=== PATIENT | female | born 1985 | race Caucasian/White ===

== ENCOUNTER 2020-05-07 16:09 | Outpatient (CLI) | payer OTHER, SELFPAY ==
--- NOTE | 2020-05-07 16:14 | XR_ITS ---
WS: [id number] EXAM: LEFT KNEE: 3 VIEWS DATE OF EXAMINATION: 05/07/2020, 1635 hours COMPARISON: None. HISTORY: Patient is 35 years old with knee pain after falling down stairs on Thursday. FINDINGS: Osseous, joint and surrounding soft tissues are unremarkable. XR/XR knee LT 3V* [id number] IMPRESSION: Negative.
== END 2020-05-07 16:10 | disposition home or self-care (01) ==
LOC: RAD 16:13
PROVIDERS: PCP Family Medicine; Visit Provider Nurse Practitioner
DX: M25.562 Pain in left knee (principal); W19.XXXA Unspecified fall, initial encounter
CPT/HCPCS: 73562

== ENCOUNTER → 2020-09-25 16:50 | Outpatient (BNVA) | payer OTHER, SELFPAY | PROVIDERS: PCP Family Medicine; Visit Provider Nurse Practitioner Family | DX: Z20.828 Contact with and (suspected) exposure to other viral communicable diseases (principal); J06.9 Acute upper respiratory infection, unspecified | CPT/HCPCS: 87635 ==

== ENCOUNTER → 2021-04-02 09:40 | Outpatient (BNVA) | payer OTHER, SELFPAY | PROVIDERS: PCP Family Medicine; Visit Provider Nurse Practitioner Family | DX: Z20.822 Contact with and (suspected) exposure to COVID-19 (principal) | CPT/HCPCS: 87635 ==

== ENCOUNTER 2021-11-22 07:03 | Emergency (ER) | payer OTHER, SELFPAY ==
--- NOTE | 2021-11-22 07:07 | XR_ITS ---
WS: [id number] Right foot, 3 views, 11/22/2021 Clinical Data: fall, injury Comparison: None. Findings: No fractures or dislocations are seen. No bone destruction or erosion is noted. The joint spaces and soft tissues are normal. There is a plantar spur. XR/XR foot RT min 3V* [id number] Impression: Negative right foot.
[2021-11-22 07:15] VITALS: BP 146/88; PULSE 82; RESP 20; TEMP 36.8; O2SAT 99; BMI 28.5
--- NOTE | 2021-11-22 07:19 | W.ED.LOWEXIN ---
HPI - Extremity Injury (Lower) General: Chief Complaint: Extremity Injury, Lower Stated Complaint: Fell Right foot injury Time Seen by Provider: 11/22/21 07:07 Source: patient Mode of arrival: wheelchair Limitations: no limitations History of Present Illness: Patient is a 36-year-old female presents to ED today with a complaint of a right foot injury that she sustained just prior to arrival after she was on a flight of stairs and one of the stairs broke. She is not sure how the foot landed but complains of pain to the dorsal aspect. Patient states she is not able to bear weight. She has no other injuries or complaints at this time. complaint: foot injury Onset (ago): hour(s) Injury: Right: foot Place: home Relieving factors: immobilization Exacerbating factors: weight bearing, movement and palpation Other symptoms: none Review of Systems Musc: Reports: extremity pain (R foot pain); Denies: extremity swelling or joint swelling Neuro: Denies: numbness in extremities or sensory changes PFS ED PFSH: Social History Smoking and tobacco status: current every day smoker Alcohol intake: never Physical Exam Const: COMMON NORMALS: no acute distress, no limitations and alert GENERAL APPEARANCE: cooperative Extremity: COMMON NORMALS: capillary refill normal GENERAL: Yes normal exam except as noted RIGHT LOWER EXTREMITY: Yes foot & digits Right foot and digits: Yes inspection (no swelling or bony abnormality appreciated ), Yes palpation (TTP mid dorsal foot; no swelling noted) and Yes neurovascular exam (normal) Neuro: SENSORIUM/ORIENTATION: Yes alert Course Vital Signs: Vital signs: Vital Signs Temperature 98.2 F 11/22/21 07:21 Pulse Rate 82 11/22/21 07:21 Respiratory Rate 20 H 11/22/21 07:21 Blood Pressure 146/88 11/22/21 07:21 Pulse Oximetry 99 11/22/21 07:21 MDM - Extremity Injury (Lower) Medical Decision Making My interpretation of R foot XR negative. Will KARTHIK wrap/crutches and instructions for RICE therapy and weight bearing as tolerated. Will contact patient if any discrepancies with radiology over-read. Discharge Plan Discharge Patient Disposition: Home Clinical Impression: Right foot sprain Qualifiers: Encounter type: initial encounter Qualified Code(s): S93.601A - Unspecified sprain of right foot, initial encounter Condition: Stable Prescriptions: No Action amoxicillin-pot clavulanate [Augmentin] 875-125 mg tablet 1 tab PO Q12H 7 Days Qty: 14 0RF prednisone 10 mg tablet 30 mg PO DAILY 5 Days Qty: 15 0RF Discharge Orders: Discharge ED (Routine); Ordered 11/22/21 Ordered By: Anna Hogan Referrals: Lacy Rivas MD [Primary Care Provider] - Patient Instructions: Foot Sprain (ED) Stand Alone Forms: Work/School Release Coding Level of Care Code ED Pipe Bowls Paint Trimmer for Radha Hardin
[2021-11-22 07:21] VITALS: BP 146/88; PULSE 82; RESP 20; TEMP 36.8; O2SAT 99
[2021-11-22 07:37] VITALS: BP 107/83; PULSE 81; O2SAT 98
== END 2021-11-22 07:39 | disposition home or self-care (01) ==
PROVIDERS: Emergency Provider Physician Assistant; PCP Family Medicine
DX: S93.601A Unspecified sprain of right foot, initial encounter (principal); F17.210 Nicotine dependence, cigarettes, uncomplicated; W13.8XXA Fall from, out of or through other building or structure, initial encounter
CPT/HCPCS: 73630; 99283; E0114

== ENCOUNTER → 2022-03-28 16:57 | Outpatient (BNVA) | payer OTHER, SELFPAY | PROVIDERS: PCP Family Medicine; Visit Provider Obstetrics & Gynecology | DX: R21 Rash and other nonspecific skin eruption (principal) | CPT/HCPCS: 88304; 88305 ==

== ENCOUNTER 2022-04-07 22:36 | Emergency (ER) | payer OTHER, SELFPAY ==
[2022-04-07 22:51] VITALS: BP 141/90; PULSE 95; RESP 18; TEMP 37.1; O2SAT 98; BMI 27.0
--- NOTE | 2022-04-07 22:57 | ED_ITS ---
HPI - General Adult General: Chief complaint: General Medical Stated complaint: Wound Care Time Seen by Provider: 04/07/22 22:56 History of Present Illness: 37-year-old female comes in today for possible infection to surgical biopsy site. Patient on the eighth had a biopsy of her right upper chest wall. Patient reported on Thursday she noticed some purulent drainage from the site. Patient appears nontoxic. Patient appears in no acute distress. Patient does report tenderness at the surgical site. Review of Systems Const: Denies: fever(s) Skin/Breast: Reports: skin tenderness PFSH ED PFSH: Medical History (Updated 04/07/22 @ 23:03 by CHAZ Mello) No pertinent past medical history Surgical History (Updated 03/30/22 @ 15:19 by Jolene Acosta MD) No pertinent past surgical history Social History Smoking and tobacco status: current every day smoker Alcohol intake: never Female Reproductive History: Date of last menstrual period: 03/17/22 Physical Exam Const: COMMON NORMALS: alert HENMT: COMMON NORMALS: normocephalic HEAD & SCALP: normocephalic Neck/C-Spine: COMMON NORMALS: full ROM Chest: CHEST: Yes wounds (Right upper chest wall, induration, mild purulent drainage) Resp: COMMON NORMALS: normal respiratory effort Cardio: COMMON NORMALS: regular rate RATE: regular rate Extremity: COMMON NORMALS: normal to inspection Neuro: SENSORIUM/ORIENTATION: Yes alert Skin: WOUNDS: Yes wounds noted drainage, without odor, open and other (Surrounding induration); Negative for without any surrounding erythema Course Vital Signs: Vital signs: Vital Signs Temperature 98.7 F 04/07/22 22:51 Pulse Rate 95 04/07/22 22:51 Respiratory Rate 18 04/07/22 22:51 Blood Pressure 141/90 04/07/22 22:51 Pulse Oximetry 98 04/07/22 22:51 MDM - General Adult Medical Decision Making Patient comes in for concerns of an infection to her surgical wound. Patient had a biopsy done on the eighth of this month to her right upper chest wall. On evaluation today we note some purulent drainage from the wound site with some induration surrounding the biopsy.Significant redness is noted. Differential diagnosis includes but not limited to abscess, cellulitis, wound infection. We will go ahead and treat with doxycycline mupirocin ointment for wound infection. Reviewed exam with patient recommendations for treatment and follow-up. Patient reported understanding and agreed to plan. Discharge Plan Discharge Patient Disposition: Home Clinical Impression: Wound, surgical, infected Condition: Stable Prescriptions: New doxycycline monohydrate 100 mg capsule 100 mg PO BID 7 Days Qty: 14 0RF mupirocin 2 % ointment 1 applic topical BID Qty: 22 0RF Discharge Orders: Discharge ED (Routine); Ordered 04/07/22 Ordered By: Hemant Styles Referrals: Lacy Rivas MD [Primary Care Provider] - Discharge Diet: Usual diet Discharge Activity: Increase activity as tolerated Patient Instructions: Wound Infection (ED) Activity Restrictions/Additional Instructions: Take antibiotic doxycycline, 1 tablet 2 times a day for 7 days. Drink plenty of water with medication. The antibiotic use may make you more sensitive to sunlight causing you to burn easier. Use mupirocin ointment twice a day to the wound until healed. Follow-up with primary care or surgeon for further dorota tment and evaluation. Return to ER for high fever greater than 100.4, inability to hold fluids down, or new concerns. Coding Level of Care Code ED Branch Service Leader for Radha Hardin
[2022-04-07] MEDS: mupirocin oint 22 gm 1 APPLIC TOPICAL (23:41)
[2022-04-07] MEDS: doxycycline 100 mg Tablet PO (23:41)
== END 2022-04-07 23:58 | disposition home or self-care (01) ==
PROVIDERS: Emergency Provider Nurse Practitioner Family; PCP Family Medicine
DX: T81.41XA Infection following a procedure, superficial incisional surgical site, initial encounter (principal); F17.210 Nicotine dependence, cigarettes, uncomplicated
CPT/HCPCS: 99283

== ENCOUNTER 2022-05-21 08:37 | Outpatient (CLI) | payer OTHER, SELFPAY ==
--- NOTE | 2022-05-21 08:57 | MM_ITS ---
WS: [id number] DIAGNOSTIC BILATERAL DIGITAL BREAST TOMOSYNTHESIS MAMMOGRAPHY WITH CAD HISTORY: RIGHT breast rash. No palpable abnormalities. COMPARISON: None available. TECHNIQUE: Bilateral craniocaudad, mediolateral oblique, and mediolateral views are submitted with to moswilly and SM. Computer aided detection utilized. Breast composition: There are scattered areas of fibroglandular density. No suspicious mass or calcif ication. No architectural distortion. No skin thickening. Nipples are in profile. MM/[place] [id number] IMPRESSION: BI-RADS: 1-Negative FOLLOW UP: 1 Year Follow-up
== END 2022-05-21 08:38 | disposition home or self-care (01) ==
LOC: RAD 08:39
PROVIDERS: PCP Family Medicine; Visit Provider Obstetrics & Gynecology
DX: R21 Rash and other nonspecific skin eruption (principal)
CPT/HCPCS: 77062

== ENCOUNTER → 2023-04-16 09:23 | Outpatient (BNVA) | payer OTHER, SELFPAY | PROVIDERS: PCP Family Medicine; Visit Provider Podiatrist Foot & Ankle Surgery | DX: M79.671 Pain in right foot (principal) | CPT/HCPCS: 73630 ==

== ENCOUNTER → 2023-06-26 16:36 | Outpatient (BNVA) | payer OTHER, SELFPAY | PROVIDERS: PCP Family Medicine; Visit Provider Emergency Medicine | DX: M25.511 Pain in right shoulder | CPT/HCPCS: 73030 ==

== ENCOUNTER → 2023-07-08 08:30 | Outpatient (BNVA) | payer OTHER, SELFPAY | PROVIDERS: PCP Family Medicine; Visit Provider Family Medicine | DX: R42 Dizziness and giddiness (principal); R10.32 Left lower quadrant pain; F17.200 Nicotine dependence, unspecified, uncomplicated; Z71.6 Tobacco abuse counseling | CPT/HCPCS: 80053; 80061; 82306; 82607; 82728; 83550; 84439; 84443; 85025 ==

== ENCOUNTER 2023-08-31 14:58 | Emergency (ER) | payer OTHER, SELFPAY ==
[2023-08-31 15:02] VITALS: BP 117/81; PULSE 92; RESP 18; TEMP 36.6; O2SAT 96
--- NOTE | 2023-08-31 15:06 | XR_ITS ---
WS: [id number] Exam: XR foot RT min 3V* [id number] Date/Time of Exam: 08/31/2023 3:08 PM Reason For Exam: injury Comparison 04/16/2023. There is an acute fracture of the distal end of the fifth proximal phalanx with lateral angulation of the distal fragment. No other acute fractures are seen. No dislocation. No soft tissue foreign tayla s. Plantar heel spur. IMPRESSION: 1. Angulated fracture of the distal end of the proximal fifth phalanx.
--- NOTE | 2023-08-31 15:10 | ED_ITS ---
HPI - Extremity Problem General: Chief complaint: Extremity Injury, Lower Stated complaint: hurt right foot Time Seen by Provider: 08/31/23 15:06 Source: patient Mode of arrival: ambulatory Limitations: no limitations History of Present Illness: 38-year-old female states just prior to arrival she had hit her right pinky toe on her couch states she believes she may have fractured she has pain in that toe she rates a 6 out of 10 denies any other injuries states is worse with palpation improved with rest. Associated symptoms: Deny chest pain, fever(s) or rash Review of Systems Const: Denies: fever(s) or chills ENMT: Denies: throat pain or dental pain Card: Denies: chest pain Resp: Denies: dyspnea GI: Denies: abdominal pain, nausea, vomiting or diarrhea Musc: Reports: extremity pain; Denies: neck pain or back pain Skin/Breast: Denies: rash Neuro: Denies: headache(s) PFS ED PFSH: Medical History No pertinent past medical history Surgical History No pertinent past surgical history Family History (Updated 07/08/23 @ 07:56 by Ibis Broussard LPN) Grandfather CAD (coronary artery disease) Mother CAD (coronary artery disease) Social History Smoking and tobacco/nicotine status: current every day tobacco/nicotine user Alcohol intake: never Substance/Drug Use: never Physical Exam Const: COMMON NORMALS: no acute distress, patient oriented x3 and healthy appearing HENMT: COMMON NORMALS: normocephalic and atraumatic HEAD & SCALP: normocephalic and atraumatic Neck/C-Spine: COMMON NORMALS: full ROM and supple Chest: COMMONS NORMALS: normal inspection of the chest Resp: COMMON NORMALS: normal respiratory effort Extremity: COMMON NORMALS: normal to inspection and full ROM NARRATIVE EXTREMITY EXAM: Tenderness over right pinky toe Neuro: COMMON NORMALS: patient oriented x3, moves all extremities and no focal motor deficits Psych: COMMON NORMALS: mental status grossly normal, Normal thought process present and cooperative THOUGHT PROCESS: Normal thought process present Skin: COMMON NORMALS: no rashes or lesions noted and no wounds GENERAL SKIN EXAM: no rashes or lesions noted Course Vital Signs: Vital signs: Vital Signs Temperature 97.8 F 08/31/23 15:02 Pulse Rate 92 08/31/23 15:02 Respiratory Rate 18 08/31/23 15:02 Blood Pressure 117/81 08/31/23 15:02 Pulse Oximetry 96 08/31/23 15:02 Oxygen Delivery Me thod Room Air 08/31/23 15:02 MDM - Extremity (Nontraumatic) Medical Decision Making Patient presents with a toe fracture patient stable for discharge we will prescribe pain meds she is to follow-up with podiatry return if worsening. Medical Records I reviewed the patient's medical records. XR interpretation done by ED provider, pending radiology final review ED provider radiology interpretation(s): Fracture to right pinky toe Discharge Plan Discharge Patient Disposition: Home Clinical Impression: Fracture of right toe Qualifiers: Encounter type: initial encounter Toe: lesser toe Fracture type: closed Phalanx: middle Fracture alignment: nondisplaced Qualified Code(s): S92.524A - Nondisplaced fracture of middle phalanx of right lesser toe(s), initial encounter for closed fracture Condition: Stable Prescriptions: New hydrocodone-acetaminophen 5-325 mg tablet 1 tab PO Q6H PRN (Reason: pain) Qty: 14 0RF No Action ibuprofen 600 mg tablet 600 mg PO Q8H PRN (Reason: pain) Qty: 30 0RF cholecalciferol (vitamin D3) 1,250 mcg (50,000 unit) capsule 50,000 unit PO .q weekly 84 Days Qty: 12 0RF Discharge Orders: Discharge ED (Routine); Ordered 08/31/23 Ordered By: Tunde Mayer Referrals: Rene Chu DPM [Physician] - 1-3 days Bernardo Ashby MD [Primary Care Provider] - Discharge Diet: Advance as tolerated Discharge Activity: Resume usual activity Patient Instructions: Toe Fracture (ED), Opioid Safety Coding Level of Care Code ED Leather Heel Breaster for Radha Hardin
[2023-08-31] MEDS: HYDROcodone-acetaminophen 5-325 mg Tablet 1 TAB PO (15:16)
--- NOTE | 2023-08-31 18:04 | DCPLANNER ---
Referral was sent to podiatry on 08/31/23 at [id number]. Clinic to contact patient.
== END 2023-08-31 15:42 | disposition home or self-care (01) ==
PROVIDERS: Emergency Provider Emergency Medicine; PCP Family Medicine
DX: S92.524A Nondisplaced fracture of middle phalanx of right lesser toe(s), initial encounter for closed fracture (principal); Z72.0 Tobacco use; W22.03XA Walked into furniture, initial encounter
CPT/HCPCS: 73630; 99283

== ENCOUNTER → 2023-09-03 14:52 | Outpatient (BNVA) | payer OTHER, SELFPAY | PROVIDERS: PCP Family Medicine; Visit Provider Podiatrist Foot & Ankle Surgery | DX: S92.911A Unspecified fracture of right toe(s), initial encounter for closed fracture (principal); W22.8XXA Striking against or struck by other objects, initial encounter | CPT/HCPCS: 73630 ==

== ENCOUNTER → 2023-09-24 09:44 | Outpatient (BNVA) | payer OTHER, SELFPAY | PROVIDERS: PCP Family Medicine; Visit Provider Podiatrist Foot & Ankle Surgery | DX: S92.911D Unspecified fracture of right toe(s), subsequent encounter for fracture with routine healing (principal); X58.XXXD Exposure to other specified factors, subsequent encounter | CPT/HCPCS: 73630 ==

== ENCOUNTER → 2023-09-29 10:22 | Outpatient (BNVA) | payer OTHER, SELFPAY | PROVIDERS: PCP Family Medicine; Visit Provider Family Medicine | DX: E55.9 Vitamin D deficiency, unspecified (principal); H81.10 Benign paroxysmal vertigo, unspecified ear; R10.32 Left lower quadrant pain; F17.200 Nicotine dependence, unspecified, uncomplicated | CPT/HCPCS: 82306; 83540 ==

== ENCOUNTER 2023-10-26 10:26 | Outpatient (RCR) | payer OTHER, SELFPAY | END 2023-11-19 23:59 | disposition home or self-care (01) | LOC: SPT 10:26 | PROVIDERS: Visit Provider Family Medicine | DX: H81.10 Benign paroxysmal vertigo, unspecified ear (principal) | CPT/HCPCS: 95992; 97161 ==

== ENCOUNTER 2023-12-03 11:18 | Emergency (ER) | payer OTHER, SELFPAY ==
[2023-12-03 11:23] VITALS: BP 133/86; PULSE 66; RESP 16; TEMP 36.6; O2SAT 97; BMI 27.6
--- NOTE | 2023-12-03 11:51 | ED_ITS ---
HPI - Animal Bite General: Chief Complaint: Animal Bite Stated Complaint: sent over by urgent care, rabies shot Time Seen by Provider: 12/03/23 11:20 Source: patient Mode of arrival: ambulatory History of Present Illness: 38-year-old female presents emergency ro om with a cat bite to the left forearm that occurred yesterday she has 2 puncture méndez on the forearm she applied a cyanoacrylate skin glue to them she was seen in the urgent care today initially she had stated she wanted to get rabies vaccination. The cat is a house cat but that has not been vaccinated for rabies. Is been behaving well it was started yesterday with which resulted in her getting bitten. Is still under control and has not shown any signs of illness. MD complaint: animal bite Onset (ago): day(s) (1) Animal: cat Description of animal: household pet Mechanism: bite Location - Extremities: Left: forearm Associated symptoms: Deny bleeding, chills, cough, diaphoresis, erythema, fever(s), numbness, rash, short of breath, weakness or wound drainage Treatments prior to arrival: wound dressing(s) Review of Systems Const: Denies: fever(s), chills or diaphoresis Skin/Breast: Denies: rash PFSH ED PFSH: Medical History No pertinent past medical history Surgical History No pertinent past surgical history Family History Grandfather CAD (coronary artery disease) Mother CAD (coronary artery disease) Social History Smoking and tobacco/nicotine status: current every day tobacco/nicotine user Alcohol intake: never Substance/Drug Use: never Physical Exam Const: GENERAL APPEARANCE: cooperative and comfortable ORIENTATION/CONSCIOUSNESS: Yes awake, Yes oriented to person, Yes oriented to place and Yes oriented to time HENMT: COMMON NORMALS: normocephalic, atraumatic and hearing grossly normal bilaterally HEAD & SCALP: normocephalic and atraumatic Resp: COMMON NORMALS: normal respiratory effort, No retractions, No use of accessory muscles and clear to auscultation bilaterally AUSCULTATION: clear to auscultation bilaterally Cardio: COMMON NORMALS: regular rate, regular rhythm and No murmurs present (Cardio) RATE: regular rate RHYTHM: regular rhythm Extremity: COMMON NORMALS: normal to inspection, capillary refill normal, no clubbing, cyanosis or edema, no calf tenderness and no pedal edema OTHER: 2 puncture wounds in the left forearm co nsistent with cat bite. There is cyanoacrylate glue on which was cleaned off by nursing staff no signs of infection mild localized swelling no redness or induration Neuro: SENSORIUM/ORIENTATION: Yes oriented to person, Yes oriented to place and Yes oriented to time Skin: COMMON NORMALS: no rashes or lesions noted GENERAL SKIN EXAM: no rashes or lesions noted and no erythema Course Vital Signs: Vital signs: Vital Signs Temperature 97.9 F 12/03/23 11:23 Pulse Rate 66 12/03/23 11:23 Respiratory Rate 16 12/03/23 11:23 Blood Pressure 133/86 12/03/23 11:23 Pulse Oximetry 97 12/03/23 11:23 Oxygen Delivery Me thod Room Air 12/03/23 11:23 MDM - Animal Bite Medical Decision Making Discussed with patient and offered vaccination for rabies versus observing the cat ultimately she decided to observe the cat is still in her position as to any changes and because behavior needs to be tested for rabies and she would need to initiate immunizations. Advised patient if she changes her mind any point she can return and we will initiate the rabies sequence. Discussed with the patient should not put occlusive bandage over the bites as it can increase the development of abscess. Was prescribed Augmentin at the Differential Diagnosis Likely cat bite Medical Records I reviewed the patient's medical records. Lab Data I reviewed the patient's lab results. No radiology studies performed this visit Discharge Plan Discharge Patient Disposition: Home Clinical Impression: Cat bite of forearm Condition: Stable Prescriptions: No Action ibuprofen 600 mg tablet 600 mg PO Q8H PRN (Reason: pain) Qty: 30 0RF amoxicillin-pot clavulanate 875-125 mg tablet 1 tab PO BID 10 Days Qty: 20 0RF cholecalciferol (vitamin D3) 1,250 mcg (50,000 unit) capsule See Rx Instructions .ROUTE .COMPLEX Qty: 12 0RF Dose Instruction: Take 1 capsule by mouth once a week Rx Instructions: Take 1 capsule by mouth once a week Discharge Orders: Discharge ED (Routine); Ordered 12/03/23 Ordered By: Mahesh Sim Referrals: Bernardo Ashby MD [Primary Care Provider] - Discharge Diet: Usual diet Discharge Activity: Resume usual activity Patient Instructions: Rabies (ED), Opioid Safety, Pain Management Activity Restrictions/Additional Instructions: Thank you for choosing [facility] for your healthcare needs today. Please realize this is an emergency room and that we are providing you with a medical screening exam and this may not be complete and all inclusive of all the testing and or work up that you may need to determine your ailment or severity of your illness. It is very important that you follow up as instructed or that you return to the Emergency Department should you have concerns or if your condition changes or worsens in any way. You are seen today after a cat bite. You previously prescribed Augmentin you should take this for the full course. Recommend that you leave the wound open to heal by secondary intent avoid applying products wound closure products or they can worsening develop infection if it occurs. We had offered rabies vaccination in the emergency room you had opted instead to observe the animal since he is still in here for the control. Animal should be observed for any signs of illness for the next 10 days if there are any signs of illness animal should be brought to the commercial lending relationship manager to be tested and you should begin rabies vaccination if you change your mind at any point in the future before the 10 days is up you can return to initiate rabies vaccination. Coding Level of Care Code ED Product Builder for Radha Hardin
[2023-12-03] MEDS: tetanus-dipt-pertussis 0.5 mL SDV IM (12:18)
== END 2023-12-03 12:29 | disposition home or self-care (01) ==
PROVIDERS: Emergency Provider Family Medicine; PCP Family Medicine
DX: S51.852A Open bite of left forearm, initial encounter (principal); W55.01XA Bitten by cat, initial encounter; Z72.0 Tobacco use; Z23 Encounter for immunization
CPT/HCPCS: 90471; 90715; 99283

== ENCOUNTER → 2024-07-18 10:15 | Outpatient (BNVA) | payer OTHER, SELFPAY | PROVIDERS: PCP Family Medicine; Visit Provider Registered Nurse Neonatal Intensive Care | DX: S99.921A Unspecified injury of right foot, initial encounter (principal); M77.31 Calcaneal spur, right foot | CPT/HCPCS: 73630 ==

== ENCOUNTER → 2024-07-26 09:06 | Outpatient (BNVA) | payer OTHER, SELFPAY | PROVIDERS: PCP Family Medicine; Visit Provider Podiatrist Foot & Ankle Surgery | DX: M79.671 Pain in right foot (principal); S92.001A Unspecified fracture of right calcaneus, initial encounter for closed fracture; W17.89XA Other fall from one level to another, initial encounter | CPT/HCPCS: 73630 ==

== ENCOUNTER → 2024-08-09 07:50 | Outpatient (BNVA) | payer OTHER, SELFPAY | PROVIDERS: PCP Family Medicine; Visit Provider Podiatrist Foot & Ankle Surgery | DX: M79.671 Pain in right foot (principal); S92.001A Unspecified fracture of right calcaneus, initial encounter for closed fracture; X58.XXXA Exposure to other specified factors, initial encounter | CPT/HCPCS: 73630 ==

== ENCOUNTER → 2024-11-02 15:20 | Outpatient (BNVA) | payer OTHER, SELFPAY | PROVIDERS: PCP Family Medicine; Visit Provider Podiatrist Foot & Ankle Surgery | DX: M79.671 Pain in right foot (principal); M72.2 Plantar fascial fibromatosis | CPT/HCPCS: 73630 ==

== ENCOUNTER 2025-06-17 19:02 | Emergency (ER) | payer OTHER, SELFPAY ==
[2025-06-17 19:07] VITALS: BP 154/101; PULSE 78; RESP 14; TEMP 36.3; O2SAT 99; BMI 29.7
[2025-06-17 19:57] VITALS: BP 133/94; PULSE 76; RESP 16; O2SAT 96
--- NOTE | 2025-06-17 20:05 | USR_ITS ---
PROCEDURE INFORMATION: Exam: US Abdomen, Limited; Right Upper Quadrant Exam date and time: 06/17/2025 8:52 PM Age: 40 years old Clinical indication: Abdominal pain; Localized; Right upper quadrant (ruq); Additional info: Ruq pain TECHNIQUE: Imaging protocol: Real time ultrasound of the abdomen with image documentation. Limited exam focused on the right upper quadrant. COMPARISON: No relevant prior studies available. FINDINGS: Liver: Liver demonstrate normal echogenicity Gallbladder: Gallbladder is fluid filled no gallstones identified. Gallbladder wall thickness measured at 3 mm. Common bile duct measured at 5 mm Biliary ducts: See Gallbladder finding. Pancreas: Visualized pancreas demonstrate no abnormalities head and tail obscured by bowel gas. Right kidney: The right kidney measures 9.9 x 4.4 x 4.2 cm with cortical thickness of 1.4 cm. There is normal echogenicity right kidney without stones or hydronephrosis. Portal venous: There is normal hepatopedal flow in the main portal vein. US/US gall bladder [id number] IMPRESSION: No findings present to suggest cholelithiasis or biliary dilatation.
[2025-06-17 20:14] LABS: Hematocrit 39.0 % (36-47); Hemoglobin 13.00 g/dL (11.27-16.99); Mean Corpuscular HGB Conc 33.3 g/dL (30-55); Mean Corpuscular Hemoglobin 29.7 pg (27-33); Mean Corpuscular Volume 89.0 fl (85-98); Nucleated Red Blood Cells % 0 %; Platelet Count 257 10^3/cmm (157-399); Red Blood Count 4.38 10^6/uL (3.85-5.65); White Blood Count 7.88 10^3/uL (3.29-11.43)
[2025-06-17] MEDS: ondansetron 2 mg/ML SDV 2 mL 4 MG IVP (20:19)
[2025-06-17 20:39] LABS: HCG, Serum Qual Negative (Negative)
[2025-06-17 20:41] LABS: Alanine Aminotransferase 16 U/L (0-33); Albumin Level 4.4 g/dL (3.5-5.2); Alkaline Phosphatase 55 U/L (35-105); Anion Gap 15.1 (5-19); Aspartate Amino Transferase 17 U/L (0-32); Blood Urea Nitrogen 10 mg/dL (6-20); Calcium 9.6 mg/dL (8.5-10.5); Carbon Dioxide 25 mmol/L (22-29); Chloride 105 mmol/L (98-107); Creatinine Clr Calc Pharmacy 122.8821; Globulin 2.6 g/dL (1.3-4.6); Glucose 93 mg/dL (65-115); Lipase 34 U/L (13-60); Osmolality Calculated 291 mOsm/kg (285-295); Potassium 4.1 mmol/L (3.5-5.1); Sodium 141 mmol/L (136-145); Total Protein 7.0 g/dL (6.6-8.7)
[2025-06-17 20:42] LABS: Glucose Urine UA Negative (Normal); Nitrate Urine Negative (Negative); Specific Gravity, Urine 1.023 (1.005-1.030)
[2025-06-17 20:44] VITALS: BP 118/79; PULSE 73; RESP 16; O2SAT 98
--- NOTE | 2025-06-17 20:45 | W.ED.ABDPA2 ---
HPI - Abdominal Pain General: Chief Complaint: Abdominal Pain Stated Complaint: Stomach pain RUQ Nausea Time Seen by Provider: 06/17/25 19:46 History of Present Illness: Patient is a 40-year-old female presenting with abdominal pain that started on Thursday. She reports the pain has worsened since onset. The pain is localized to the right upper quadrant of the abdomen. Patient denies vomiting but reports feeling nauseated. She denies fever and diarrhea. Patient reports some discomfort with urination but denies hematuria. Patient denies possibility of . The pain is described as being worse with movement. Related Data Previous Rx's ?Medication ?Instructions ?Recorded ketorolac 10 mg tablet 10 mg PO TID PRN pain #10 tabs 06/17/25 ondansetron 4 mg disintegrating 4 mg PO Q6H PRN nausea and 06/17/25 tablet vomiting #14 tabs Allergies Allergy/AdvReac Type Severity Reaction Status Date / Time No Known Allergies Allergy Verified 06/17/25 19:10 [facility] ED PFSH: Medical History Right shoulder pain No pertinent past medical history Surgical History No pertinent past surgical history Family History Grandfather CAD (coronary artery disease) Mother CAD (coronary artery disease) Social History Smoking and tobacco/nicotine status: unknown if used tobacco/nicotine Alcohol intake: never Substance/Drug Use: never Physical Exam Const: COMMON NORMALS: no acute distress GENERAL APPEARANCE: cooperative; not ill appearing and not frail appearing HENMT: COMMON NORMALS: normocephalic, atraumatic and Normal external nose present HEAD & SCALP: normocephalic and atraumatic FACE & SINUS: normal facial exam and face symmetric NOSE: Normal external nose present Eye: COMMON NORMALS: Equal, round and reactive pupils present and EOMs intact bilaterally PUPIL: Yes Equal, round and reactive pupils present Neck/C-Spine: GENERAL: Yes trachea midline Chest: CHEST: Yes Symmetrical chest wall rise Resp: COMMON NORMALS: normal respiratory effort, No retractions, No use of accessory muscles and clear to auscultation bilaterally AUSCULTATION: clear to auscultation bilaterally Cardio: COMMON NORMALS: regular rate and regular rhythm RATE: regular rate RHYTHM: regular rhythm GI: COMMON NORMALS: Normal to inspection, nondistended, normoactive bowel sounds present PALPATION: Yes Tenderness to palpation present (GI) Details: RUQ Extremity: COMMON NORMALS: no pedal edema Neuro: CIARA COMA SCALE: document GCS findings Ciara coma scale eye opening: Spontaneous [place] coma scale verbal response: Orientated Ciara coma scale motor response: Obey commands [place] coma scale total score: 15 SENSORY EXAM: Yes extremities (intact) Psych: COMMON NORMALS: speech normal SPEECH: Yes normal speech Skin: COMMON NORMALS: no rashes or lesions noted GENERAL SKIN EXAM: no rashes or lesions noted Course Vital Signs: Vital signs: Vital Signs Temperature 97.4 F L 06/17/25 19:07 Pulse Rate 72 06/17/25 21:25 Respiratory Rate 16 06/17/25 21:25 Blood Pressure 126/97 06/17/25 21:25 Pulse Oximetry 95 06/17/25 21:25 Oxygen Delivery Me thod Room Air 06/17/25 21:25 MDM - Abdominal Pain Medical Decision Making 40-year-old female with right upper quadrant pain. Pain is improved after Toradol and Zofran. CBC BMP liver enzymes and lipase are all normal. CRP is 3. Urinalysis is negative. Right upper quad ultrasound reveals no acute findings. She is stable for discharge. Outpatient follow-up. Lab Data 06/17/25 19:56 06/17/25 19:56 Labs/Radiology: Radiology Impressions Gallbladder Ultrasound 06/17/25 20:05 IMPRESSION: No findings present to suggest cholelithiasis or biliary dilatation. Laboratory Results WBC 7.88 10^3/uL (3.29-11.43) 06/17/25 19:56 RBC 4.38 10^6/uL (3.85-5.65) 06/17/25 19:56 Hgb 13.00 g/dL (11.27-16.99) 06/17/25 19:56 Hct 39.0 % (36-47) 06/17/25 19:56 MCV 89.0 fl (85-98) 06/17/25 19:56 MCH 29.7 pg (27-33) 06/17/25 19:56 MCHC 33.3 g/dL (30-55) 06/17/25 19:56 RDW 11.9 % (12.1-15.1) L 06/17/25 19:56 Plt Count 257 10^3/cmm (157-399) 06/17/25 19:56 MPV 10.7 fL (7.4-10.4) H 06/17/25 19:56 Neut % (Auto) 53.3 % 06/17/25 19:56 Lymph % (Auto) 36.2 % 06/17/25 19:56 [place] % (Auto) 7.0 % 06/17/25 19:56 Eos % (Auto) 2.5 % 06/17/25 19:56 Baso % (Auto) 0.9 % 06/17/25 19:56 Neut # (Auto) 4.20 10^3/uL (1.8-7.7) 06/17/25 19:56 Lymph # (Auto) 2.9 10^3/uL (0.8-4.8) 06/17/25 19:56 [place] # (Auto) 0.6 10^3/uL (0.2-0.9) 06/17/25 19:56 Eos # (Auto) 0.2 10^3/uL (0.0-0.8) 06/17/25 19:56 Baso # (Auto) 0.1 10^3/uL (0.0-0.1) 06/17/25 19:56 Nucleated RBC % (auto) 0 % 06/17/25 19:56 Nucleated RBCs # 0.0 /100WBC 06/17/25 19:56 Sodium 141 mmol/L (136-145) 06/17/25 19:56 Potassium 4.1 mmol/L (3.5-5.1) 06/17/25 19:56 Chloride 105 mmol/L (98-107) 06/17/25 19:56 Carbon Dioxide 25 mmol/L (22-29) 06/17/25 19:56 Anion Gap 15.1 (5-19) 06/17/25 19:56 BUN 10 mg/dL (6-20) 06/17/25 19:56 Creatinine 0.7 mg/dL (0.5-0.9) 06/17/25 19:56 GFR Calculation 93.6 mL/min (90-130) 06/17/25 19:56 Glucose 93 mg/dL (65-115) 06/17/25 19:56 Calculated Osmolality 291 mOsm/kg (285-295) 06/17/25 19:56 Calcium 9.6 mg/dL (8.5-10.5) 06/17/25 19:56 Total Bilirubin 0.3 mg/dL (0.15-1.2) 06/17/25 19:56 AST 17 U/L (0-32) 06/17/25 19:56 ALT 16 U/L (0-33) 06/17/25 19:56 Alkaline Phosphatase 55 U/L (35-105) 06/17/25 19:56 C-Reactive Protein 3.0 mg/L (0.0-4.9) 06/17/25 19:56 Total Protein 7.0 g/dL (6.6-8.7) 06/17/25 19:56 Albumin 4.4 g/dL (3.5-5.2) 06/17/25 19:56 Globulin 2.6 g/dL (1.3-4.6) 06/17/25 19:56 Lipase 34 U/L (13-60) 06/17/25 19:56 HCG, Qual Negative (Negative) 06/17/25 19:56 Urine Color Yellow (Yellow) 06/17/25 20:10 Urine Appearance Turbid (CLEAR) A 06/17/25 20:10 Urine pH 6.5 (5-7) 06/17/25 20:10 Ur Specific [place] 1.023 (1.005-1.030) 06/17/25 20:10 Urine Protein Negative (Negative) 06/17/25 20:10 Urine Glucose (UA) Negative (Normal) 06/17/25 20:10 Urine Ketones Negative (Negative) 06/17/25 20:10 Urine Blood Negative (Negative) 06/17/25 20:10 Urine Nitrate Negative (Negative) 06/17/25 20:10 Urine Bilirubin Negative (Negative) 06/17/25 20:10 Urine Urobilinogen 1.0 mg/dL (Negative) 06/17/25 20:10 Ur Leukocyte Esterase Negative (Negative) 06/17/25 20:10 Urine RBC 0-2 /hpf (0-2) 06/17/25 20:10 Urine WBC 0-5 /hpf (0-5) 06/17/25 20:10 Ur Squamous Epith Cells 6-10 /hpf (0-5) 06/17/25 20:10 Amorphous Sediment Not Reportable 06/17/25 20:10 Urine Bacteria 1+ /hpf (NONE) H 06/17/25 20:10 Hyaline Casts 0-4 /lpf H 06/17/25 20:10 All radiology interpretation(s) finalized by discharge Discharge Plan Discharge Patient Disposition: Home Clinical Impression: Abdominal pain Qualifiers: Abdominal location: right upper quadrant Qualified Code(s): R10.11 - Right upper quadrant pain Condition: Stable Prescriptions: New ketorolac 10 mg tablet 10 mg PO TID PRN (Reason: pain) Qty: 10 0RF ondansetron 4 mg tablet,disintegrating 4 mg PO Q6H PRN (Reason: nausea and vomiting) Qty: 14 0RF Discharge Orders: Discharge ED (Routine); Ordered 06/17/25 Ordered By: Omar Silva Referrals: Bernardo Ashby MD [Primary Care Provider, Family Practice] - 1-3 days Patient Instructions: Abdominal Pain (ED), Opioid Safety, Pain Management, Patient Portal & Good Instructions Activity Restrictions/Additional Instructions: Return for fever, worsening pain despite treatment, vomiting liquids, any other concerning symptoms. You may take medication as needed for pain or nausea. Stay hydrated. Call your doctor Thursday morning for follow-up appointment this week. Print Language: Armenian Coding Level of Care Code ED Driver Messenger for Radha Hardin
[2025-06-17 20:47] LABS: Add Urine Microscopic? YES
[2025-06-17 21:25] VITALS: BP 126/97; PULSE 72; RESP 16; O2SAT 95
== END 2025-06-17 21:58 | disposition home or self-care (01) ==
PROVIDERS: Emergency Provider Emergency Medicine; PCP Family Medicine
DX: R10.11 Right upper quadrant pain (principal)
CPT/HCPCS: 76705; 80053; 81001; 83690; 84703; 85025; 86140; 96374; 96375; 99285; J1885; J2405

== ENCOUNTER 2025-06-27 08:57 | Emergency (ER) | payer OTHER, SELFPAY ==
[2025-06-27 09:13] VITALS: BP 134/90; PULSE 103; TEMP 36.9; O2SAT 98
--- NOTE | 2025-06-27 09:23 | ED_ITS ---
HPI - GI Bleed 2 General: Chief complaint: GI Bleed Stated complaint: blood in stool, Dr sent Time Seen by Provider: 06/27/25 09:18 Source: patient Mode of arrival: ambulatory Limitations: no limitations History of Present Illness: Patient is a 40-year-old female presents to ED today after an episode of bright red blood per rectum this morning after defecation. Patient states she had not had a bowel movement in approximately 3 days. She does report slightly straining during this bowel movement. She quantifies as a few teaspoons of bright red blood that was noticed in the toilet bowl and on her stool. She states she has never had similar symptoms before. No history of hemorrhoids. She is complaining of some minor right sided abdominal pain that is an ongoing issue. She has seen her primary care provider for this and was also seen in the ED. She was told this could be related to her gallbladder or gastritis. She states she is on a strict bland gallbladder diet and is also taking pantoprazole. She has an appointment to follow-up with primary care following this next month. She states her abdominal pain is at baseline and does not seem to be worsening. No fevers or vomiting. MD complaint: blood streaked stool Onset (ago): hour(s) Severity: mild Relieving factors: none Exacerbating factors: bowel movement Associated symptoms: Reports abdominal pain (ongoing issue-told could be gallbladder vs gastritis); Denies chills, fever(s), headache(s), malaise, nausea, rash or vomiting Treatments Prior to Arrival: none Related Data Previous Rx's ?Medication ?Instructions ?Recorded ondansetron 4 mg disintegrating 4 mg PO Q6H PRN nausea and 06/19/25 tablet vomiting #30 tabs pantoprazole 40 mg tablet,delayed 40 mg PO DAILY #30 t abs 06/19/25 release Allergies Allergy/AdvReac Type Severity Reaction Status Date / Time egg Allergy Unknown Verified 06/27/25 09:17 Review of Systems 2 Const: Denies: fever(s), chills, body aches, fatigue or malaise Card: Denies: chest pain Resp: Denies: dyspnea GI: Reports: abdominal pain (ongoing issue-told could be gallbladder vs gastritis) and hematochezia; Denies: nausea, vomiting, hematemesis, diarrhea, GI cramping, belching or melena : Denies: flank pain, dysuria or hematuria Musc: Denies: neck pain, back pain, extremity pain or joint swelling Skin/Breast: Denies: rash Neuro: Denies: headache(s), numbness in extremities, weakness in extremities, sensory changes or dizziness PFSH ED 2 PFSH: Medical History Obesity (BMI 30.0-34.9) Right shoulder pain No pertinent past medical history Surgical History No pertinent past surgical history Family History Grandfather CAD (coronary artery disease) Mother CAD (coronary artery disease) Social History Smoking and tobacco/nicotine status: current every day tobacco/nicotine user Alcohol intake: never Substance/Drug Use: never Physical Exam 2 Const: COMMON NORMALS: no acute distress, patient oriented x3, no limitations, healthy appearing, alert and well nourished GENERAL APPEARANCE: cooperative Eye: COMMON NORMALS: no scleral icterus Resp: COMMON NORMALS: normal respiratory effort and clear to auscultation bilaterally AUSCULTATION: clear to auscultation bilaterally Cardio: COMMON NORMALS: regular rate and regular rhythm RATE: regular rate RHYTHM: regular rhythm GI: COMMON NORMALS: Normal to inspection, nondistended, normoactive bowel sounds present, Soft to palpation, No hepatosplenomegaly present and no masses INSPECTION: Yes normal to inspection AUSCULTATION: Yes normoactive bowel sounds PALPATION: Yes Soft to palpation, Yes Tenderness to palpation present (GI) (mild RUQ-non surgical examination), No Guarding due to palpation present (GI), No Rigid due to palpation and Yes No hepatosplenomegaly present : COMMON NORMALS: Yes no CVA tenderness BLADDER/KIDNEY EXAM: Yes no CVA tenderness Back/Pelvis: COMMON NORMALS: no CVA tenderness Extremity: GENERAL: Yes normal exam except as noted Neuro: COMMON NORMALS: patient oriented x3 SENSORIUM/ORIENTATION: Yes alert Skin: COMMON NORMALS: no rashes or lesions noted GENERAL SKIN EXAM: no rashes or lesions noted Course 2 Vital Signs: Vital signs: Vital Signs Temperature 98.5 F 06/27/25 09:13 Pulse Rate 74 06/27/25 10:33 Respiratory Rate 16 06/27/25 10:33 Blood Pressure 133/76 06/27/25 10:33 Pulse Oximetry 100 06/27/25 10:33 Oxygen Delivery Me thod Room Air 06/27/25 09:13 MDM - GI Bleed Medical Decision Making Patient presented to the ED today with a complaint of episode of bright red blood per rectum quantifying it is a few teaspoons of bright red blood after straining for defecation. She clinically appears in no acute distress. Her vital signs are normal. Hemoglobin today is 13.5 and higher than it was on her last visit about a week ago. There is no need for emergent imaging at this time. Discussed beginning stool softeners. This should resolve on its own. Bleeding persists, I would like her to follow-up with primary care. Return to ED precautions discussed. Differential Diagnosis Likely hemorrhoids, Lower gastrointestinal hemorrhage, hematochezia and anal fissure Medical Records I reviewed the patient's medical records. Lab Data I reviewed the patient's lab results. 06/27/25 09:33 06/27/25 09:33 Laboratory Results WBC 5.46 10^3/uL (3.29-11.43) 06/27/25 09:33 RBC 4.43 10^6/uL (3.85-5.65) 06/27/25 09:33 Hgb 13.50 g/dL (11.27-16.99) 06/27/25 09:33 Hct 39.2 % (36-47) 06/27/25 09:33 MCV 88.5 fl (85-98) 06/27/25 09:33 MCH 30.5 pg (27-33) 06/27/25 09: MCHC 34.4 g/dL (30-55) 06/27/25 09:33 RDW 11.9 % (12.1-15.1) L 06/27/25 09:33 Plt Count 234 10^3/cmm (157-399) 06/27/25 09:33 MPV 10.4 fL (7.4-10.4) 06/27/25 09:33 Neut % (Auto) 60.6 % 06/27/25 09:33 Lymph % (Auto) 29.3 % 06/27/25 09:33 [place] % (Auto) 6.2 % 06/27/25 09:33 Eos % (Auto) 2.4 % 06/27/25 09:33 Baso % (Auto) 1.1 % 06/27/25 09:33 Neut # (Auto) 3.31 10^3/uL (1.8-7.7) 06/27/25 09:33 Lymph # (Auto) 1.6 10^3/uL (0.8-4.8) 06/27/25 09:33 [place] # (Auto) 0.3 10^3/uL (0.2-0.9) 06/27/25 09:33 Eos # (Auto) 0.1 10^3/uL (0.0-0.8) 06/27/25 09:33 Baso # (Auto) 0.1 10^3/uL (0.0-0.1) 06/27/25 09:33 Nucleated RBC % (auto) 0 % 06/27/25 09: Nucleated RBCs # 0.0 /100WBC 06/27/25 09:33 Sodium 138 mmol/L (136-145) 06/27/25 09:33 Potassium 4.2 mmol/L (3.5-5.1) 06/27/25 09:33 Chloride 104 mmol/L (98-107) 06/27/25 09:33 Carbon Dioxide 23 mmol/L (22-29) 06/27/25 09:33 Anion Gap 15.2 (5-19) 06/27/25 09:33 BUN 12 mg/dL (6-20) 06/27/25 09:33 Creatinine 0.8 mg/dL (0.5-0.9) 06/27/25 09:33 GFR Calculation 80.3 mL/min (90-130) L 06/27/25 09:33 Glucose 88 mg/dL (65-115) 06/27/25 09:33 Calculated Osmolality 285 mOsm/kg (285-295) 06/27/25 09:33 Calcium 9.3 mg/dL (8.5-10.5) 06/27/25 09:33 Total Bilirubin 0.5 mg/dL (0.15-1.2) 06/27/25 09:33 AST 18 U/L (0-32) 06/27/25 09:33 ALT 11 U/L (0-33) 06/27/25 09:33 Alkaline Phosphatase 43 U/L (35-105) 06/27/25 09:33 Total Protein 6.9 g/dL (6.6-8.7) 06/27/25 09:33 Albumin 4.4 g/dL (3.5-5.2) 06/27/25 09:33 Globulin 2.5 g/dL (1.3-4.6) 06/27/25 09:33 HCG, Qual Negative (Negative) 06/27/25 09:33 Urine Color Yellow (Yellow) 06/27/25 09:49 Urine Appearance Cloudy (CLEAR) A 06/27/25 09:49 Urine pH 6.0 (5-7) 06/27/25 09:49 Ur Specific [place] 1.028 (1.005-1.030) 06/27/25 09:49 Urine Protein Trace (Negative) A 06/27/25 09:49 Urine Glucose (UA) Negative (Normal) 06/27/25 09:49 Urine Ketones 1+ (Negative) H 06/27/25 09:49 Urine Blood Negative (Negative) 06/27/25 09:49 Urine Nitrate Negative (Negative) 06/27/25 09:49 Urine Bilirubin Negative (Negative) 06/27/25 09:49 Urine Urobilinogen 1.0 mg/dL (Negative) 06/27/25 09:49 Ur Leukocyte Esterase 1+ (Negative) A 06/27/25 09:49 Urine RBC 0-4 /hpf (0-2) H 06/27/25 09:49 Urine WBC 0-4 /hpf (0-5) H 06/27/25 09:49 Ur Squamous Epith Cells 5-10 /hpf (0-5) H 06/27/25 09:49 Amorphous Sediment Not Reportable 06/27/25 09:49 Urine Bacteria 2+ /hpf (NONE) H 06/27/25 09:49 Urine Mucus 2+ /hpf 06/27/25 09:49 No radiology studies performed this visit Discharge Plan Discharge Patient Disposition: Home Clinical Impression: BRBPR (bright red blood per rectum) Condition: Stable Prescriptions: No Action pantoprazole 40 mg tablet,delayed release (DR/EC) 40 mg PO DAILY Qty: 30 0RF ondansetron 4 mg tablet,disintegrating 4 mg PO Q6H PRN (Reason: nausea and vomiting) Qty: 30 0RF Discharge Orders: Discharge ED (Routine); Ordered 06/27/25 Ordered By: Anna Hogan Referrals: Bernardo Ashby MD [Primary Care Provider, [facility]] Patient Instructions: Patient Portal & Good Instructions Activity Restrictions/Additional Instructions: As we discussed, you were seen here for a small episode of bright red blood per rectum. This usually is benign and will go away. We discussed the use of stool softeners to avoid straining. You may follow-up with primary care if symptoms are not improving over the next week or so. You may return to the emergency department for onset of severe rectal bleeding, severe pain with bowel movements, lightheadedness/dizziness, fevers, severe abdominal pain, or any other concerns you may have. Print Language: Bulgarian Coding Level of Care Code ED Multimedia Developer for Radha Hardin
[2025-06-27 09:44] LABS: Hematocrit 39.2 % (36-47); Hemoglobin 13.50 g/dL (11.27-16.99); Mean Corpuscular HGB Conc 34.4 g/dL (30-55); Mean Corpuscular Hemoglobin 30.5 pg (27-33); Mean Corpuscular Volume 88.5 fl (85-98); Nucleated Red Blood Cells % 0 %; Platelet Count 234 10^3/cmm (157-399); Red Blood Count 4.43 10^6/uL (3.85-5.65); White Blood Count 5.46 10^3/uL (3.29-11.43)
[2025-06-27 10:03] VITALS: BP 119/74; PULSE 65; RESP 16; O2SAT 97
[2025-06-27 10:08] LABS: HCG, Serum Qual Negative (Negative)
[2025-06-27 10:09] LABS: Glucose Urine UA Negative (Normal); Nitrate Urine Negative (Negative); Specific Gravity, Urine 1.028 (1.005-1.030)
[2025-06-27 10:09] LABS: Alanine Aminotransferase 11 U/L (0-33); Albumin Level 4.4 g/dL (3.5-5.2); Alkaline Phosphatase 43 U/L (35-105); Anion Gap 15.2 (5-19); Aspartate Amino Transferase 18 U/L (0-32); Blood Urea Nitrogen 12 mg/dL (6-20); Calcium 9.3 mg/dL (8.5-10.5); Carbon Dioxide 23 mmol/L (22-29); Chloride 104 mmol/L (98-107); Creatinine Clr Calc Pharmacy 109.7062; Globulin 2.5 g/dL (1.3-4.6); Glucose 88 mg/dL (65-115); Osmolality Calculated 285 mOsm/kg (285-295); Potassium 4.2 mmol/L (3.5-5.1); Sodium 138 mmol/L (136-145); Total Protein 6.9 g/dL (6.6-8.7)
[2025-06-27 10:20] LABS: Add Urine Microscopic? YES
[2025-06-27 10:33] VITALS: BP 133/76; PULSE 74; RESP 16; O2SAT 100
== END 2025-06-27 10:37 | disposition home or self-care (01) ==
PROVIDERS: Emergency Provider Physician Assistant; PCP Family Medicine
DX: K62.5 Hemorrhage of anus and rectum (principal); Z72.0 Tobacco use
CPT/HCPCS: 36415; 80053; 81001; 84703; 85025; 87086; 99283